=== PATIENT | male | born 1990 | race Caucasian/White ===

== ENCOUNTER 2018-04-14 13:53 | Emergency (ER) | payer OTHER ==
[~2018-04-14] VITALS: Ht 182.9 cm; Wt 88.5 kg
--- NOTE | ~2018-04-14 | EKG ---
[place] [address] [place] [address] ELECTROCARDIOGRAM REPORT Name: LEIA ROMERO Room #: REG [facility]#: [id number] Admission: 04/14/18 Attend Phys: Discharge: Date of : 89 Report #: [id number] THIS REPORT FOR: //name// [facility] ED Test Date: 2018-04-14 Test Time: 14:16:04 Pat Name: LEIA ROMERO Department: Room: Gender: Information Systems Coordinator: [email or web address] : 1990 Requested By: Hernandez Gonzales Order Number: [id number] MD: Logan Tamayo Measurements Intervals Niland Rate: 83 P: 52 UT: 154 QRS: 47 QRSD: 92 T: 34 QT: 352 QTc: 414 Interpretive Statements Sinus rhythm ST elev, probable normal early repol pattern No previous ECG available for comparison Electronically Signed On 04-14-2018 16:38:51 CDT by Logan Tamayo [email or web address] <ELECTRONICALLY SIGNED> By: Logan Tamayo MD 04/14/18 [id number] [id number] MD RICHARD Mendoza
[~2018-04-14 13:53] MED LIST: CLEOCIN HCL150 MG PO; FLOMAX0.4 MG PO; IBUPROFEN 600600 M1 PO; NOHOMEMEDICATIONS; ONDANSETRON HCL4 M2 PO; PERCOCET 5-3251 EACH PO; PHENERGAN 25 MG25 M1 PO; TAMSULOSIN HCL0.4 MG PO
[2018-04-14 14:24] LABS: HEMATOCRIT 44.3 % (42.0-52.0); HEMOGLOBIN 15.1 gm/dL (14.0-18.0); MCH 29.8 pg (26.0-34.0); MCHC 34.1 g/dL (28.0-37.0); MCV 87.4 fL (80.0-100.0); RBC 5.07 mil/uL (4.50-6.00); RDW 13.9 % (10.5-14.5); WBC 5.6 thou/uL (4.0-11.0)
[2018-04-14 14:39] LABS: ANION GAP 7 mmol/L (7-16); BUN 12 mg/dL (7-18); CALCIUM 8.7 mg/dL (8.5-10.1); CHLORIDE 109 mmol/L (98-107); CO2 25 mmol/L (21-32); CREATININE 1.1 mg/dL (0.7-1.3); GLUCOSE 90 mg/dL (74-106); SODIUM 141 mmol/L (136-145)
[2018-04-14 14:44] LABS: ALBUMIN 3.6 g/dL (3.4-5.0); SGOT 11 U/L (15-37); SGPT 17 U/L (30-65); TOTAL BILIRUBIN 0.3 mg/dL (<0.1-1.0); TOTAL PROTEIN 6.8 g/dL (6.4-8.2); TROPONIN-I < 0.04 ng/mL (<0.06)
[2018-04-14] MEDS ORDERED: HYDROCODONE-AP1 EAC6 PO (16:09)
[2018-04-14] MEDS ORDERED: MOBIC7.5 MG PO (16:09)
[2018-04-14 16:43] VITALS: BP 131/86
== END 2018-04-14 16:43 | disposition home or self-care (01) ==
LOC: ER 13:53
PROVIDERS: Physician Assistant
DX: R09.1 Pleurisy (principal); R07.9 Chest pain, unspecified; J45.909 Unspecified asthma, uncomplicated; F17.210 Nicotine dependence, cigarettes, uncomplicated; Z87.442 Personal history of urinary calculi; Z88.0 Allergy status to penicillin

== ENCOUNTER 2020-07-18 00:30 | Inpatient (IN) | payer OTHER ==
[~2020-07-18] VITALS: Ht 190.5 cm; Wt 72.6 kg
[2020-07-18] VITALS (7 sets, daily range): BP systolic 122–136; BP diastolic 73–82
[~2020-07-18 00:30] MED LIST changes: +HYDROCODONE-AP1 EAC6 PO; +MOBIC7.5 MG PO
[2020-07-18] MEDS ORDERED: NOHOMEMEDICATIONS (00:37)
[2020-07-18 01:22] LABS: BASOPHILS 0.5 % (0.0-2.0); EOSINOPHILS 2.5 % (0.0-3.0); HEMATOCRIT 41.8 % (42.0-52.0); HEMOGLOBIN 14.8 gm/dL (14.0-18.0); LYMPHOCYTES 17.2 % (24.0-44.0); MCHC 35.4 g/dL (28.0-37.0); MCV 84.8 fL (80.0-100.0); MONOCYTES 11.2 % (1.0-8.0); PLATELET COUNT 197 thou/uL (150-400); POLYS 68.6 % (36.0-66.0); RBC 4.93 mil/uL (4.50-6.00); RDW 13.8 % (10.5-14.5); WBC 10.2 thou/uL (4.0-11.0)
[2020-07-18 01:26] LABS: CALCIUM 8.1 mg/dL (8.5-10.1); CREATININE 0.9 mg/dL (0.7-1.3); POTASSIUM 3.4 mmol/L (3.5-5.1)
[2020-07-18 01:32] LABS: ALBUMIN 3.7 g/dL (3.4-5.0); TOTAL BILIRUBIN 0.5 mg/dL (0.2-1.0); TOTAL PROTEIN 7.2 g/dL (6.4-8.2)
--- NOTE | 2020-07-18 08:44 | NUR ---
admit pt admitted to room 457 via ed for left foot cellulitis. ivf's intiated hydrocodone given for pain pt made npo until seen by specialties. left foot red swollen and warm to touch picutre of abrasion to top of foot taken and placed in chart continue poc.
[2020-07-19 05:19] LABS: HEMOGLOBIN 13.6 gm/dL (14.0-18.0); MCH 30.3 pg (26.0-34.0); MCV 86.5 fL (80.0-100.0); RBC 4.5 mil/uL (4.50-6.00); RDW 13.9 % (10.5-14.5); WBC 6.5 thou/uL (4.0-11.0)
--- NOTE | 2020-07-19 05:20 | NUR ---
Assumed pt care at 1900. VSS. A/OX4. C/o pain to left foot 06/19 medicated per EMAR with relief reported. Wound care done to Left foot w/o any problems. Up ad dennis in room encouraged to call for help as needed. IVF infusing via RAC w/o problems. Continent of B&B. Resting quietly at this time,will continue to monitor pt.
[2020-07-19 05:28] LABS: CALCIUM 7.9 mg/dL (8.5-10.1); CREATININE 0.9 mg/dL (0.7-1.3); POTASSIUM 3.4 mmol/L (3.5-5.1)
[2020-07-19 07:44] VITALS: BP 125/78
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
--- NOTE | 2020-07-19 10:56 | NUR ---
PT ADMITTED RELATED TO LEFT FOOT CELLULITIS. CM REVIEWED CHART AND SPOKE WITH CARE TEAM. CM CALLED AND SPOKE WITH PT OVER THE PHONE THIS AM. PT APPEARED TO BE A&O X4. CM ROLE INTRODUCED. 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 PT INDICATED NO ASSISTIVE DEVICES. PT IS UNINSURED. PT IS WITHOUT PCP AND NOT SETABLISHED WIHT A CLINIC IN THE COMMUNITY FOR FOLLOW UP CARES. CM OFFERED [employer]. CM ALSO INDICATED THAT CM COULD PROVIDE INFO ON SHELTERS IF PT WAS INTERESTED IN GOING TO ONE UPON DC. CM MENTIONED [facility] PT INDICATED THAT WASN'T CLOSE ENOUGH THAT PT WANTED TO REMAIN LOCAL. HE INDICATED HE WASN'T INTERESTED IN ANY RESOURCES FOR SHELTERS AND WOULD LIKELY RETURN TO THE STREET UPON DC. CM ABLE TO FOLLOW AND CAN PROVIDE RESOURCES AND VOUCHER ANY NON NARCOTIC MEDS IF NEEDED UPON DC. CM TO FOLLOW INDICATED WITH DC PLANNING. PHYSICIAN INDICATED PT WILL LIKELY BE HERE FOR ANOTHER 2 DAYS FOR IV ABX.
[2020-07-19 14:23] VITALS: BP 125/78
--- NOTE | 2020-07-19 14:27 | NUR ---
PT A&OX4, VSS, WOUND REDRESSED WITH ZERO FORM, JAMIL CREAM. NICOTINE PATCH IN APPLIED. PT CONTINENT TO BOTH BOWEL AND BLADDER, ON REGULAR DIET, RESTING IN BED, ON IV ANTIBIOTIC RIGHT AC. FALL PRECAUTION IN PLACE, WILL CONTINUE TO MONITOR.
[2020-07-19 16:26] VITALS: BP 146/92
[2020-07-19 19:16] VITALS: BP 147/94
--- NOTE | 2020-07-20 07:47 | NUR ---
Assumed pt care at 1900. A/OX4,VSS. Up ad dennis, c/o generalized pain allover medicated per EMAR with some relief reported. Pt had dinner delivered in ED at ,snacks offered as well as pt c/o not getting full after trays. IVF infuisng on RAC w/o any problems. Resting w/o any distress,encouraged to call for help as needed.
[2020-07-20 07:58] VITALS: BP 140/97
--- NOTE | 2020-07-20 14:00 | NUR ---
CARE TEAM INDICATED THAT PT IS PROGRESSING TOWARD GOAL OF DISCHARGE. PHYSICIAN INDICATED THAT HOPE IS THAT PT CAN SWITCH TO ORAL ABX AND MAY BE MEDICALLY STABLE TO DISCHARGE TOMORROW. [employer] ASSISTED PT IN SUBMITTING MEDICAID AND DISABILITY APPLICATIONS. PT HAD REFUSED INFO RELATED TO HOMELESS SHELTERS PLACEMENT UPON DC. CM TO FOLLOW INDICATED WITH DC PLANNING.
[2020-07-20 16:13] VITALS: BP 122/83
[2020-07-20 20:35] VITALS: BP 127/84
--- NOTE | 2020-07-21 05:04 | NUR ---
Assumed pt care at 1900. A/OX4,VSS. C/o generalized pain allover and weakness medicated per EMAR with relief reported. Denies N/V. IVF infusing via RAC w/o any problems. Pt encouraged to call for help as needed. Dsg on left foot C/D/I,less warm,red and tender to touch.
[2020-07-21 08:12] VITALS: BP 133/97
[2020-07-21] MEDS ORDERED: KEFLEX500 M1 PO (09:49)
[2020-07-21] MEDS ORDERED: HYDROCODON-ACE1 EAC7 PO (09:49)
[2020-07-21 12:35] VITALS: BP 133/97
--- NOTE | 2020-07-21 12:57 | NUR ---
ASSUMED CARE AT CHANGE OF SHITFT. PT ALERT X4,PAIN MANAGED WITH MEDICATION. DRESSING CHANGE TO LEFT FOOT WITH PICTURE TAKEN. DC HOME WITH SELF CARE. NISHA SENT WITH PATIENT. PICKED UP MEDS FROM OUT PT PHARMACY WITH VOUCHER PER CM. SCRIPT FOR PAIN MEDS GIVEN TO PATIENT.
== END 2020-07-21 13:42 | disposition home or self-care (01) | DRG 603 ==
LOC: ER 00:30 → EROBS 02:24 → 4W 03:16
PROVIDERS: Emergency Medicine; Nurse Practitioner Family; ADMIT Internal Medicine; ATTEND Internal Medicine
DX: L03.116 Cellulitis of left lower limb (principal); F12.90 Cannabis use, unspecified, uncomplicated; S90.512A Abrasion, left ankle, initial encounter; F17.210 Nicotine dependence, cigarettes, uncomplicated; J45.909 Unspecified asthma, uncomplicated; Z87.442 Personal history of urinary calculi; Z88.0 Allergy status to penicillin; Z86.14 Personal history of Methicillin resistant Staphylococcus aureus infection; Z59.0 Homelessness; Z71.6 Tobacco abuse counseling; X58.XXXA Exposure to other specified factors, initial encounter; Y93.89 Activity, other specified; Y92.89 Other specified places as the place of occurrence of the external cause; Y99.8 Other external cause status
CPT/HCPCS: 10040

== ENCOUNTER 2020-10-09 03:33 | Emergency (ER) | payer OTHER ==
[~2020-10-09] VITALS: Ht 188 cm; Wt 81.7 kg
[~2020-10-09 03:33] MED LIST changes: +HYDROCODON-ACE1 EAC7 PO; +KEFLEX500 M1 PO
[2020-10-09 03:36] VITALS: BP 150/93
== END 2020-10-09 04:10 | disposition home or self-care (01) ==
LOC: ER 03:33
DX: T69.9XXA Effect of reduced temperature, unspecified, initial encounter (principal); J45.909 Unspecified asthma, uncomplicated; F17.210 Nicotine dependence, cigarettes, uncomplicated; Z87.442 Personal history of urinary calculi; Z88.0 Allergy status to penicillin

== ENCOUNTER 2021-11-17 13:59 | Emergency (ER) | payer OTHER ==
[~2021-11-17] VITALS: Ht 188 cm; Wt 81.7 kg
[2021-11-17 16:00] LABS: ABSOLUTE NEUTROPHILS 4.4 thou/uL (1.4-8.2); BASOPHILS 0.7 % (0.0-2.0); EOSINOPHILS 3.4 % (0.0-3.0); HEMATOCRIT 41.9 % (42.0-52.0); HEMOGLOBIN 14.3 gm/dL (14.0-18.0); LYMPHOCYTES 23.4 % (24.0-44.0); MCH 29.2 pg (26.0-34.0); MCV 85.8 fL (80.0-100.0); MONOCYTES 16.5 % (1.0-8.0); PLATELET COUNT 223 thou/uL (150-400); RBC 4.89 mil/uL (4.50-6.00); RDW 13.6 % (10.5-14.5); WBC 7.8 thou/uL (4.0-11.0)
[2021-11-17 16:05] LABS: CALCIUM 8.5 mg/dL (8.5-10.1); CREATININE 0.8 mg/dL (0.7-1.3); POTASSIUM 4.1 mmol/L (3.5-5.1)
[2021-11-17] MEDS ORDERED: NAPROSYN500 MG PO (16:41)
[2021-11-17] MEDS ORDERED: BACTRIM DS TAB1 EACH PO (16:41)
[2021-11-17 16:49] VITALS: BP 117/85
== END 2021-11-17 16:52 | disposition home or self-care (01) ==
LOC: ER 13:59
PROVIDERS: Emergency Medicine
DX: L03.113 Cellulitis of right upper limb (principal); J45.909 Unspecified asthma, uncomplicated; F17.210 Nicotine dependence, cigarettes, uncomplicated; Z87.442 Personal history of urinary calculi; Z88.0 Allergy status to penicillin